=== PATIENT | male | born 1960 | race Caucasian/White ===

== ENCOUNTER 2018-12-07 08:54 | Day surgery (SDC) | payer MEDICARE, MEDICAID ==
[2018-12-07] VITALS (15 sets, daily range): BP systolic 137–165; BP diastolic 67–96
[~2018-12-07] VITALS: Ht 182.9 cm; Wt 117.2 kg
[2018-12-07 10:07] LABS: ALANINE AMINOTRANSFERASE 22 U/L (12-78); ALBUMIN 3.2 G/DL (3.4-5.0); ALBUMIN/GLOBULIN RATIO 0.7 (1.1-1.5); ALKALINE PHOSPHATASE 83 IU/L (46-116); ANION GAP 5 (8-16); ASPARTATE AMINO TRANSFERASE 20 U/L (10-37); BASOPHILS # (AUTO) 0.1 X10'3 (0-0.2); BILIRUBIN,TOTAL 0.3 MG/DL (0.1-1.0); BLOOD UREA NITROGEN 69 MG/DL (7-18); BUN/CREATININE RATIO 31.9 (5.4-32.0); CALCIUM 8.9 MG/DL (8.5-10.1); CHLORIDE 108 MMOL/L (99-107); CREATININE 2.16 MG/DL (0.60-1.10); EOSINOPHILS # (AUTO) 0.4 X10'3 (0-0.9); EOSINOPHILS % (AUTO) 5.2 % (0-6); GLUCOSE 146 MG/DL (70-104); HEMATOCRIT 29.5 % (42.0-52.0); HEMOGLOBIN 9.7 g/dl (14.0-17.9); LYMPHOCYTES # (AUTO) 1.6 X10'3 (1.1-4.8); LYMPHOCYTES % (AUTO) 22.2 % (21-51); MEAN CORPUSCULAR HEMOGLOBIN 28.4 PG (27.0-31.0); MEAN CORPUSCULAR VOLUME 85.9 FL (78-98); MEAN PLATELET VOLUME 8.2 FL (7.4-10.4); MONOCYTES # (AUTO) 0.6 X10'3 (0-0.9); MONOCYTES % (AUTO) 8.1 % (2-12); NEUTROPHILS # (AUTO) 4.6 X10'3 (1.8-7.7); NEUTROPHILS % (AUTO) 63.5 % (42-75); PLATELET COUNT 216 X10'3 (140-440); POTASSIUM 4.8 MMOL/L (3.5-5.1); RED BLOOD COUNT 3.43 X10'6 (4.70-6.10); RED CELL DISTRIBUTION WIDTH 13.9 % (11.5-14.5); SODIUM 143 MMOL/L (135-145); TOTAL CARBON DIOXIDE 29.6 MMOL/L (24-32); TOTAL PROTEIN 7.9 G/DL (6.4-8.2); WHITE BLOOD COUNT 7.3 X10'3 (4.5-11.0); eGFR 31 ML/MIN
[2018-12-07] MEDS ORDERED: famotidine/PF 10 mg/ml inj IV ONE (10:25)
[2018-12-07] MEDS ORDERED: vancomycin inj 1,500 MG in normal saline 300ml IV soln IV ONE (10:30)
[2018-12-07] MEDS ORDERED: cefazolin/dext.iso 2gm/100 ML IV ONE (10:30)
[2018-12-07] MEDS ORDERED: ringers solution, lacted 1,000 ML IV SCH (10:30)
[2018-12-07] MEDS ORDERED: famotidine 20mg tablet PO ONE (10:35)
[2018-12-07] MEDS ORDERED: INSU100C4 SQ (10:49)
[2018-12-07] MEDS ORDERED: ATOR40TA PO (10:49)
[2018-12-07] MEDS ORDERED: HYDR-4069 PO (10:49)
[2018-12-07] MEDS ORDERED: DOCU-20 PO (10:49)
[2018-12-07] MEDS ORDERED: AZIL1TAB3 PO (10:49)
[2018-12-07] MEDS ORDERED: SERT25TA PO (10:49)
[2018-12-07] MEDS ORDERED: INSU100I31 SQ (10:49)
[2018-12-07] MEDS ORDERED: HYDR-3965 PO (10:49)
[2018-12-07] MEDS ORDERED: TRAZ-251 PO (10:49)
[2018-12-07] MEDS ORDERED: AMLO10TA PO (10:49)
[2018-12-07] MEDS ORDERED: LIRA0.6P2 SUBCUT (10:49)
[2018-12-07] MEDS ORDERED: GABA-532 PO (10:49)
[2018-12-07] MEDS ORDERED: fentaNYL /PF 50mcg/ml 5ml ampule ONE (12:52)
[2018-12-07] MEDS ORDERED: midazolam 2 mg/2 ml injection ONE (12:52)
[2018-12-07] MEDS ORDERED: ROPIVAcaine 0.5% (5mg/ml) 30ml vial ONE ×3 (12:53→14:15)
[2018-12-07] MEDS ORDERED: LIDOcaine 1%/PF 5ML 10 MG/ML VIAL ONE (12:55)
[2018-12-07] MEDS ORDERED: propofol inj 20 ML IV ONE (12:55)
[2018-12-07] MEDS ORDERED: sevoflurane 250ml liquid IH ONE (13:04)
[2018-12-07] MEDS ORDERED: ondansetron/PF 4mg/2ml inj ONE (14:27)
--- NOTE | 2018-12-07 14:32 | NUR ---
Received from OR via [facility] , accompanied by Anesthesiologist MELA and report given by Anesthesiolgist. ERNIE BRACE TO LEFT KNEE. + DORSALIS PEDIS. NO DRAINAGE TO DRESSING TO LEFT KNEE. MEDICATED BY ANESTHESIA UPON ARRIVAL. 10L MASK ON WITH 100% SATURATIONS. VSS. DENIES PAIN FOLLOWING PAIN MEDS. Addendum: 12/07/18 at 1510 by Gerson Louie RN, RN Amended: Links added.
[2018-12-07] MEDS ORDERED: HYDROcodone/acetaminophen 10/325mg tab PO PRN (14:35)
[2018-12-07 15:01] LABS: ISTAT CREATININE 1.9 mg/dL (0.8-1.3); ISTAT HGB 8.8 g/dl (14.0-18.0); ISTAT IONIZED CALCIUM 1.24 mmol/L (1.03-1.32); ISTAT K 5.2 mmol/L (3.5-5.1); POC BUN/CREATININE RATIO 35.8 (5.4-32.0)
[2018-12-07] MEDS ORDERED: morphine 4 MG/ML inj SYRINge IV PRN ×2 (15:35)
[2018-12-07] MEDS ORDERED: morphine 4 MG/ML inj SYRINge ONE (15:37)
--- NOTE | 2018-12-07 16:42 | NUR ---
ALL DC CRITERIA HAS BEEN MET. IV TAKEN OUT WITHOUT COMPLICATIONS. ALL INSTRUCTIONS COVERED AND ALL QUESTIONS ANSWERED. DRESSINGS CDI. OUT VIA WHEELCHAIR TO PERSONAL VEHICLE WHERE PATIENT WAS SECURED IN AND DRIVEN HOME BY FAMILY. PRESENT TO HEAR ALL DC INSTRUCTIONS. OUT AND ASSISTED TO FRONT PASSENGER SEAT AND SECURED IN. Addendum: 12/07/18 at 1728 by Gerson Louie RN, RN Amended: Links added.
== END 2018-12-07 16:42 | disposition home or self-care (01) ==
LOC: PAS 08:54
PROVIDERS: ATTEND Orthopaedic Surgery
DX: S76.112A Strain of left quadriceps muscle, fascia and tendon, initial encounter (principal); M19.071 Primary osteoarthritis, right ankle and foot; W01.0XXA Fall on same level from slipping, tripping and stumbling without subsequent striking against object, initial encounter; Y93.89 Activity, other specified; Y92.89 Other specified places as the place of occurrence of the external cause; Y99.8 Other external cause status; Z79.899 Other long term (current) drug therapy
CPT/HCPCS: 27385; 36415; 80047; 82948; 85025; 93005; J2250; J2270; J2405; J2704; J3010; J3370; J7120; L1832; 80053; A4618; A6449; A7000; J2795; J3490

== ENCOUNTER 2023-02-19 11:46 | Emergency (ER) | payer BC, MEDICAID ==
[~2023-02-19] VITALS: Ht 182.9 cm; Wt 113.6 kg
[~2023-02-19 11:46] MED LIST: AMLO10TA PO; ATOR40TA PO; AZIL1TAB3 PO; DOCU-348 PO; GABA-532 PO; HYDR-3965 PO; HYDR-4069 PO; INSU100C4 SQ; INSU100I31 SQ; LIRA0.6P2 SUBCUT; SERT25TA PO; TRAZ-251 PO
[2023-02-19 12:06] LABS: BASOPHILS # (AUTO) 0.1 X10'3 (0-0.2); EOSINOPHILS # (AUTO) 0.3 X10'3 (0-0.9); EOSINOPHILS % (AUTO) 4.2 % (0-6); HEMATOCRIT 41.5 % (42.0-52.0); HEMOGLOBIN 13.6 g/dl (14.0-17.9); LYMPHOCYTES # (AUTO) 1.5 X10'3 (1.1-4.8); LYMPHOCYTES % (AUTO) 24.5 % (21-51); MEAN CORPUSCULAR HEMOGLOBIN 29.4 PG (27.0-31.0); MEAN CORPUSCULAR HGB CONC 32.8 g/dL (33.0-36.5); MEAN CORPUSCULAR VOLUME 89.7 FL (78-98); MEAN PLATELET VOLUME 8.1 FL (7.4-10.4); MONOCYTES # (AUTO) 0.4 X10'3 (0-0.9); NEUTROPHILS # (AUTO) 3.8 X10'3 (1.8-7.7); NEUTROPHILS % (AUTO) 63.3 % (42-75); PLATELET COUNT 183 X10'3 (140-440); RED BLOOD COUNT 4.63 X10'6 (4.70-6.10); RED CELL DISTRIBUTION WIDTH 14.5 % (11.5-14.5)
[2023-02-19 12:28] LABS: ALANINE AMINOTRANSFERASE 28 U/L (12-78); ALBUMIN 3.5 G/DL (3.4-5.0); ALBUMIN/GLOBULIN RATIO 0.9 (1.1-1.5); ALKALINE PHOSPHATASE 84 IU/L (46-116); ANION GAP 7 (8-16); ASPARTATE AMINO TRANSFERASE 20 U/L (10-37); BILIRUBIN,TOTAL 0.5 MG/DL (0.1-1.0); BLOOD UREA NITROGEN 59 MG/DL (7-18); BUN/CREATININE RATIO 23.9 (10.0-20.0); CALCIUM 8.9 MG/DL (8.5-10.1); CHLORIDE 104 MMOL/L (99-107); CREATININE 2.47 MG/DL (0.60-1.10); GLUCOSE 342 MG/DL (70-104); POTASSIUM 5.1 MMOL/L (3.5-5.1); SODIUM 139 MMOL/L (135-145); TOTAL CARBON DIOXIDE 28.4 MMOL/L (24-32); TOTAL PROTEIN 7.3 G/DL (6.4-8.2); eCRCL 33 ML/MIN; eGFR 26 ML/MIN
[2023-02-19 12:33] LABS: PRO BRAIN NATRIURETIC PEPTIDE 136 PG/ML (0-125)
[2023-02-19 15:14] VITALS: BP 120/63; PULSE 62; RESP 16; TEMP 98.1; O2SAT 96
== END 2023-02-19 15:15 | disposition home or self-care (01) ==
LOC: ER 11:46
DX: R07.89 Other chest pain (principal); E11.22 Type 2 diabetes mellitus with diabetic chronic kidney disease; I12.0 Hypertensive chronic kidney disease with stage 5 chronic kidney disease or end stage renal disease; N18.9 Chronic kidney disease, unspecified; Z79.899 Other long term (current) drug therapy; Z79.84 Long term (current) use of oral hypoglycemic drugs
CPT/HCPCS: 36415; 71045; 80053; 83880; 84484; 85025; 93005; 99285

== ENCOUNTER 2024-10-14 06:23 | Observation (INO) | payer BC, OTHER ==
[~2024-10-14] VITALS: Ht 182.9 cm; Wt 94.0 kg
[~2024-10-14 06:23] MED LIST changes: -HYDR-4069 PO; +HYDR25TA90 PO
--- NOTE | 2024-10-14 06:39 | Physician Documentation ---
History of Present Illness ~ Chief Complaint: Dizziness Stated Complaint: DIZZINESS Time Seen by MD: 06:37 OK to notify your PCP?: Yes Source: patient, RN/MD, RN notes reviewed, old records Mode of Arrival: POV Exam Limitations: no limitations HPI This pleasant diabetic states his last hemoglobin A1c a month ago was over nine. Has a history of renal insufficiency. He denies any tinnitus earache recent colds or infection. He went to bed doing perfectly fine with no symptoms and then woke up at 5:00 a.m. and has just tremendous difficulty with gait. No difficulty with speech or swallowing no weakness no numbness but when he stands up he just falls to the left he is unsure as to why he is so unsteady. He states he feels dizzy. He is not falling when he is sitting but when he ambulates he just has no balance. He will stand up and he just stumbles. Otherwise he has no symptoms no chest pain no shortness of breath fevers chills no paresthesias no numbness. Moving his head in different directions does not make his symptoms better or worse. Medication Reconciliation Allergies: Coded Allergies: No Known Allergies (Unverified , 12/07/18) Scheduled Amlodipine Besylate (Amlodipine Besylate), 1 TABLET PO DAILY, (Reported) Atorvastatin Calcium* (Lipitor*), 1 TAB PO DAILY, (Reported) Azilsartan Med/Chlorthalidone (Edarbyclor 40-12.5 mg Tablet), 1 TAB PO DAILY, (Reported) Gabapentin (Gabapentin), 1 CAP PO BID, (Reported) Hydralazine Hcl* (Apresoline*), 25 MG PO DAILY, (Reported) Insulin Aspart (Novolog), 15 UNIT SQ DAILY, (Reported) Insulin Glargine,Hum.rec.anlog (Basaglar Kwikpen U-100), 35 UNITS SQ BID, (Reported) Liraglutide (Victoza 3-Jey), 0.5 MG SUBCUT DAILY, (Reported) Sertraline Hcl* (Zoloft*), Unknown Dose PO DAILY, (Reported) Trazodone HCl (Trazodone HCl), 1 TAB PO HS, (Reported) Scheduled PRN Hydrocodone Bit/Acetaminophen 5/325 MG (Hamel 5/325 MG), 1 TAB PO Q6H PRN for pain, (Reported) Discontinued Medications Docusate Sodium (Docusate Sodium), 1 CAP PO DAILY, (Reported) Discontinued Reason: patient no longer taking Past Medical History Past Medical History: Chronic Kidney Disease, Diabetes Review of Systems All Other Systems at this time: Reviewed and Negative Physical Exam Vital Signs: RN Vital Signs have been reviewed: Yes, Temperature: 98.2, Source: Oral, Heart Rate: 68, Respiratory Rate: 16, BP: 164/68, Pulse Oximetry: 99, Weight: 94.000 Oxygen Flow Rate: 0 Physical Exam General: The patient is well developed, well nourished, nontoxic appearing and is in no acute distress. Skin: [place], warm and dry with no rashes. HEENT: Head was normocephalic and atraumatic. Eyes - pupils equal, round, reactive to light and accommodation. Extraocular movements were intact, positive nystagmus noted.. Conjunctivae were nonicteric. The mouth and oropharynx were clear with moist mucous membranes. There were no pharyngeal exudates or erythema. Neck: Supple and nontender. There was no jugular venous distention, lymphadenopathy, thyromegaly or masses. Chest: Clear to auscultation bilaterally without wheezes, rales or rhonchi. No accessory muscle use. No dullness to percussion. Heart: Rate regular and rhythmic. S1, S2. No murmurs. Palpation of the chest wall was normal. No rubs or thrills. Abdomen: Soft, nontender and nondistended. Positive bowel sounds. No guarding or rebound. No hepatosplenomegaly or palpable masses. Extremities: No cyanosis, clubbing or edema. The patient moves all extremities. Pulses were equal and symmetric. Neurologic: Cranial nerves II-XII were intact. Sensation was intact to light touch throughout. Motor strength was 5/5 in all four extremities. Deep tendon reflexes were intact in both upper and lower extremities. No pronator drift., gait unsteady listing to the last Psychologic: The patient was oriented to person, place and time. The patient demonstrated appropriate judgement and insight. Progress Results/Orders Reviewed/noted all lab results: Yes Results/Orders Orders - JOSÉ MIGUEL SALINAS MD Monitor (10/14/24 06:37) 2 Large Bore Ivs (10/14/24 06:37) Chest,Single View (10/14/24 06:37) Accucheck (10/14/24 06:37) Ct Stroke Alert (10/14/24 06:50) Electrocardiogram (10/14/24 06:37) [place] Prov.Neuro Consult (10/14/24 06:43) Echocardiogram (10/14/24 06:43) Normal Saline 1000ml (Sodium Chloride 10 (10/14/24 06:45) Cta Neck/Head (10/14/24 ) Page Hospitalist (10/14/24 07:28) Fill Out Med Reconciliation (10/14/24 07:28) Ua W/Microscopic, Cult If Ind (10/14/24 08:14) Completed Orders - JOSÉ MIGUEL SALINAS MD Cbc/Diff (10/14/24 06:37) Electrocardiogram (10/14/24 06:37) Chest,Single View (10/14/24 06:37) Ct Stroke Alert (10/14/24 06:50) BMP (10/14/24 06:37) PTT (10/14/24 06:37) Pt Inr (10/14/24 06:37) Iohexol 350mg/Ml 100ml (Omnipaque 350mg/ (10/14/24 06:42) Aspirin 81mg Chew Tablet (Aspirin 81mg C (10/14/24 07:15) Clopidogrel Tablet (Plavix Tablet) (10/14/24 07:30) Medications Received in ER Medications (Trade) Dose Ordered Sig/Judy Route PRN Reason Start Time Stop Time Status Last Admin Dose Admin Sodium Chloride 1,000 ml @ 150 mls/hr Q6H40M ONCE IV 10/14/24 06:45 10/14/24 13:24 10/14/24 06:59 150 MLS/HR (aspirin 81MG chew tablet) 324 mg ONCE ONCE PO 10/14/24 07:15 10/14/24 07:16 DC 10/14/24 07:19 324 MG (Plavix tablet) 300 mg ONCE ONCE PO 10/14/24 07:30 10/14/24 07:31 DC 10/14/24 07:57 300 MG Vital Signs 10/14/24 10/14/24 10/14/24 10/14/24 06:26 07:00 07:10 07:30 Temp 98.2 Pulse 68 70 68 69 Resp 16 16 16 16 B/P (MAP) 164/68 142/76 (98) 161/78 161/79 (106) Pulse Ox 99 99 98 99 O2 Flow Rate 0 0 0 Laboratory Tests Test 10/14/24 06:32 10/14/24 06:43 10/14/24 08:14 Glucometer 117 H White Blood Count 5.4 Red Blood Count 4.72 Hemoglobin 13.4 L Hematocrit 41.0 L Mean Corpuscular Volume 86.8 Mean Corpuscular Hemoglobin 28.4 Mean Corpuscular Hemoglobin Concent 32.7 L Red Cell Distribution Width 13.6 Platelet Count 174 Mean Platelet Volume 8.2 Neutrophils (%) (Auto) 51.1 Lymphocytes (%) (Auto) 32.6 Monocytes (%) (Auto) 9.0 Eosinophils (%) (Auto) 5.4 Basophils (%) (Auto) 1.9 H Neutrophils # (Auto) 2.7 Lymphocytes # (Auto) 1.7 Monocytes # (Auto) 0.5 Eosinophils # (Auto) 0.3 Basophils # (Auto) 0.1 CBC Comment Prothrombin Time 10.3 INR International Normalized Ratio 1.0 Activated Partial Thromboplast Time 27 Coagulation Comments Sodium Level 144 Potassium Level 4.2 Chloride Level 107 Carbon Dioxide Level 24.3 Anion Gap 13 Blood Urea Nitrogen 37 H Creatinine 1.92 H Estimated GFR/1.73 m2 35 BUN/Creatinine Ratio 19.3 Glucose Level 132 H Calcium Level 8.7 Albumin 3.4 Chemistry Comments Urine Specimen Description Cln catch midstream Urine Color Straw Urine Clarity Clear Urine pH 6.0 Urine Specific [place] 1.010 Urine Protein Negative Urine Glucose (UA) >=1000 H Urine Ketones Negative Urine Occult Blood Negative Urine Nitrite Negative Urine Bilirubin Negative Urine Urobilinogen 0.2 Urine Leukocyte Esterase Negative Volume Urine Centrifuged 10 ml Urine Comment Re-Evaluation Re-Evaluation : Re-Evaluation: Unchanged Progress Patient was seen and examined. Patient was given reassurance. A stroke alert was called. Neurology was involved. Patient after a negative CAT scan received aspirin and Plavix. Echocardiogram was ordered. No CT angiogram because of the chronic renal failure and a neurology did not feel this was an LV 0. Laboratory work was obtained. CBC was within normal limits some borderline anemia with a hemoglobin of 13 hematocrit of 41 and chemistry shows a GFR of 35 with a BUN of 37 and creatinine of 1.92. Urinalysis shows some glucosuria patient has a poorly controlled diabetic with a hemoglobin A1c above nine. IV lines were established urogynecology physician was established. Patient was then admitted to the hospitalist for further workup and care. CAT scan did not show any intracranial bleed or masses. Continuous urogynecology physician interpretation shows normal sinus rhythm heart rate 70s, no ectopy, normal, my interpretation. Pulse oximetry monitor interpretation shows normal oxygenation 99% room air, normal, my interpretation. EKG/XRAY/CT/US/VASC/MRI CT : CT: head With Contrast?: No Impression EXAM: CT CT STROKE ALERT INDICATION: Stroke Alert TECHNIQUE: CT of the head without intravenous contrast. Coronal and sagittal reformatted images are submitted. Radiation Dose : 1. Head: CT Dose: CTDI volume is 62.9 mGy. Dose-length product is 1182.1 mGy*cm The dose indicators for CT are the volume Computed Tomography (CT) Dose Index (CTDIvol) and the Dose Length Product (DLP), and are measured in units of mGy and mGy-cm, respectively. These indicators are not patient dose, but values generated from the CT scanner acquisition factors. The report includes radiation exposure data for exposures received during this examination. All CT scans at this medical facility are performed using dose modulation techniques as appropriate to a performed exam including the following: Automated exposure control was utilized; adjustment of the MA and/or KV according to patient size; and use of iterative reconstruction technique. COMPARISON: None FINDINGS: There is no evidence of acute intracranial hemorrhage, extra-axial collection, mass effect, midline shift, herniation or hydrocephalus. The ventricles, sulci and cisterns are age appropriate. The vaughan-white differentiation is intact. The visualized paranasal sinuses and mastoid air cells are clear. No depressed calvarial fracture. The surrounding soft tissues are unremarkable. IMPRESSION: 1. No evidence of acute intracranial abnormality. Medical Decision Making Additional info obtained from: old records Differential Dx:Considerations: Include: anemia, CVA, dehydration, dysrhythmia, electrolyte imbalance, hypoglycemia, hypotension, labyrinthitis, Meniere's disease, myasathenia gravis, myocardial infarction, pulmonary embolus, renal failure, TIA, VBI, vertigo central, vertigo peripheral, other Departure Admitted to Inpatient Unit: yes, to hospitalist Admission Level of Care: Neuro with Tele Impression: Primary Impression: Dizziness Additional Impressions: CKD (chronic kidney disease), stage III Qualified Codes: N18.32 - Chronic kidney disease, stage 3b CVA (cerebral vascular accident) Qualified Codes: I63.9 - Cerebral infarction, unspecified Condition: Guarded Referrals: NO PRIMARY CARE PROVIDER (PCP) Education Educated: Patient Educated regarding: diagnosis, need for follow up, other Critical Care Note Total Time (mins): 33 Critical Care Note The very real possibility of a deterioration of this patient's condition required the highest level of my preparedness for sudden, emergent intervention. I provided critical care services, which included medication orders, frequent reevaluations of the patient's condition and response to treatment, ordering and reviewing test results, and discussing the case with various consultants. Excludes time spent performing separately billable procedures. The critical care time associated with the care of the patient was. 33 minutes Signature Scribe Signature: No scribed Attestation: The note accurately reflects work and decisions made by me.José Miguel Salinas MD 10/14/24 06:39 JOSÉ MIGUEL SALINAS MD Oct 14, 2024 06:39
[2024-10-14] MEDS ORDERED: iohexol 350MG/ML 100ml bottle IV ONE (06:42)
--- NOTE | 2024-10-14 06:45 | ELECTROCARDIOGRAPH REPORT ---
[facility] Test Date: 2024-10-14 Test Time: 06:44:17 Pat Name: MARIALUISA PHILLIPS Department: [facility]-ER Patient ID: [id number] Room: ED 3 Gender: M [employer] Supervisor: : 1960 Requested By: IFEANYI SALINAS Order Number: [id number] Reading MD: Dr. Ifeanyi Salinas Measurements Intervals [place] Rate: 69 P: 44 MA: 189 QRS: -17 QRSD: 97 T: -20 QT: 410 QTc: 440 Interpretive Statements Sinus rhythm Abnormal R-wave progression, early transition LVH with secondary repolarization abnormality Anterior Q waves, possibly due to LVH Electronically Signed On 10-14-2024 11:30:[address] Ifeanyi Salinas Please click the below link to view image of tracing.
[2024-10-14] MEDS: normal saline 1000ml 1,000 ML IV ONE (06:59)
--- NOTE | 2024-10-14 07:07 | RADIOLOGY REPORT ---
EXAM: CT CT STROKE ALERT INDICATION: Stroke Alert TECHNIQUE: CT of the head without intravenous contrast. Coronal and sagittal reformatted images are s ubmitted. Radiation Dose : 1. Head: CT Dose: CTDI volume is 62.9 mGy. Dose-length product is 1182.1 mGy*cm The dose indicators for CT are the volume Computed Tomography (CT) Dose Index (CTDIvol) and the Dose Length Product (DLP), and are measured in units of mGy and mGy-cm, respectively. These indicators are not patient dose, but values generated from the CT scanner acquisition factors. The report includes radiation exposure data for exposures received during this examination. All CT scans at this medical facility are performed using dose modulation techniques as appropriate to a performed exam including the following: Automated exposure control was utilized; adjustment of the MA and/or KV according to patient size; and use of iterative reconstruction technique. COMPARISON: None FINDINGS: There is no evidence of acute intracranial hemorrhage, extra-axial collection, mass effect, midline s hift, herniation or hydrocephalus. The ventricles, sulci and cisterns are age appropriate. The vaughan-white differentiation is intact. The visualized paranasal sinuses and mastoid air cells are clear. No depressed calvarial fracture. The surrounding soft tissues are unremarkable. IMPRESSION: 1. No evidence of acute intracranial abnormality.
--- NOTE | 2024-10-14 07:13 | [facility] CONSULT REPORT ---
[facility] Procedure Note [facility] Procedure Note Consult [facility] Note # Demographics Consult Type: Acute Stroke Level 2 (4.5-24 hrs) Patient Location: Emergency Room First Name: Henry Last Name: Pilo Date of : 1960 Age: 64 Gender: Male Facility: [facility] Time of Initial Page (): 10/14/2024 06:42 Time of Return Call (): 10/14/2024 06:43 # HPI Chief Complaint: - dizziness Unsteady gait History: 64 yo M p/w unsteady gait and listing to the L side. He woke up at 5 AM and felt dizzy. He was unable to get out of bed due to unsteady gait. Last Known Normal: - I have collected independent history specific to time last normal or last k nown well. We have collaborated with the provider and at this time, we have the most current timeline with the information that is available. 10 pm last night # Scores Time of exam and NIHSS (): 10/14/2024 06:54 Level of Consciousness 1a: [0] = Alert; keenly responsive LOC Questions 1b: [0] = Answers both questions correctly LOC Commands 1c: [0] = Performs both tasks correctly Best Gaze 2: [0] = Normal Visual 3: [0] = No visual loss Facial Palsy 4: [0] = Normal symmetrical movements Motor Arm Left 5a: [0] = No drift Motor Arm Right 5b: [0] = No drift Motor Leg Left 6a: [0] = No drift Motor Leg Right 6b: [0] = No drift Limb Ataxia 7: [1] = Present in one limb Sensory 8: [0] = Normal Best Language 9: [0] = No aphasia Dysarthria 10: [0] = Normal Extinction and Inattention 11: [0] = No abnormality NIHSS Total: 1 # ROS Additional: - complete review of systems otherwise negative # PMH-FH-SH Past Medical History: - Diabetes - hypertension - chronic kidney disease # Data Head CT: - no bleed - preliminarily reviewed by me, please refer to radiology read for official reading # Assessment Impression: - Ischemic Stroke (Acute), likely posterior circulation stroke # Plan Thrombolytic/Intervention: NOT IV Thrombolysis or IA Intervention candidate Thrombolytic Exclusion: > 4.5 hours Intraarterial Exclusion: - clinical exam not consistent with presence of large vessel occlusion (LVO), can reconsider if LVO found on vascular imaging Target Blood Pressure: - SBP < 220 - DBP < 120 Labs: - hemoglobin A1c - lipid panel - troponin Imaging: (urgency: routine): - MRI Brain without contrast - MR Angiogram Head and neck without contrast Diagnostic Test: - echo without bubble study Therapy/Evaluation: - NPO until swallow evaluation - PT/OT evaluation - speech/swallow consultation Medication: - Plavix 300 mg PO x1 now, then 75 mg daily x 21 days + asa 81mg x 21 days, followed by monotherapy thereafter - start statin with goal of LDL < 70 DVT Prophylaxis: - SCD - chemical DVT prophylaxis Other: - If patient has any neurological deterioration please call me back immediately - telemetry monitoring - LDL < 70 - permissive hypertension for 24-48 hr, then gradually bring down to normotension - neurology referral as outpatient - I have discussed my recommendations with the referring provider # Logistics Attestation of consult completion: The patient is located at: [facility]. Facility staff participated in the visit. I performed this telemedicine visit from my offsite office utilizing interactive 2 way audio and visual telecommunication technology. Total time spent in telemedicine encounter: I spent 23 minutes reviewing clinical data and/or imaging, obtaining history, examining the patient, communicating with the onsite care team, and in preparation of this report. # Demographics First Name: Henry Last Name: Pilo Facility: [facility] Electronically signed at 10/14/2024 07:12 (Cord Time) by Cat Walters MD Neuro Consult Order placed for: Yes CAT WALTERS MD Oct 14, 2024 07:13
[2024-10-14] MEDS: aspirin 81mg tab.chew PO ONE (07:19)
--- NOTE | 2024-10-14 07:23 | RADIOLOGY REPORT ---
EXAM: XR Chest, 1 View CLINICAL INDICATION: Stroke Alert TECHNIQUE: Frontal view of the chest. COMPARISON: None FINDINGS: LUNGS AND PLEURAL SPACES: Unremarkable. No consolidation. No pneumothorax. HEART: Unremarkable. No cardiomegaly. MEDIASTINUM: Unremarkable. Normal mediastinal contour. BONES/JOINTS: Unremarkable. No acute fracture. OTHER FINDINGS: . IMPRESSION: No acute cardiopulmonary process.
[2024-10-14 07:24] LABS: BASOPHILS # (AUTO) 0.1 X10'3 (0-0.2); BASOPHILS % (AUTO) 1.9 % (0-1); EOSINOPHILS # (AUTO) 0.3 X10'3 (0-0.9); EOSINOPHILS % (AUTO) 5.4 % (0-6); HEMOGLOBIN 13.4 g/dl (14.0-17.9); LYMPHOCYTES # (AUTO) 1.7 X10'3 (1.1-4.8); LYMPHOCYTES % (AUTO) 32.6 % (21-51); MEAN CORPUSCULAR HEMOGLOBIN 28.4 PG (27.0-31.0); MEAN CORPUSCULAR HGB CONC 32.7 g/dL (33.0-36.5); MEAN CORPUSCULAR VOLUME 86.8 FL (78-98); MEAN PLATELET VOLUME 8.2 FL (7.4-10.4); MONOCYTES # (AUTO) 0.5 X10'3 (0-0.9); NEUTROPHILS # (AUTO) 2.7 X10'3 (1.8-7.7); NEUTROPHILS % (AUTO) 51.1 % (42-75); PLATELET COUNT 174 X10'3 (140-440); RED BLOOD COUNT 4.72 X10'6 (4.70-6.10); RED CELL DISTRIBUTION WIDTH 13.6 % (11.5-14.5); WHITE BLOOD COUNT 5.4 X10'3 (4.5-11.0)
[2024-10-14 07:25] LABS: ALBUMIN 3.4 G/DL (3.4-5.0); ANION GAP 13 (8-16); BLOOD UREA NITROGEN 37 MG/DL (7-18); BUN/CREATININE RATIO 19.3 (10.0-20.0); CALCIUM 8.7 MG/DL (8.5-10.1); CHLORIDE 107 MMOL/L (99-107); CREATININE 1.92 MG/DL (0.60-1.10); GLUCOSE 132 MG/DL (70-104); POTASSIUM 4.2 MMOL/L (3.5-5.1); SODIUM 144 MMOL/L (135-145); TOTAL CARBON DIOXIDE 24.3 MMOL/L (24-32); eCRCL 42 ML/MIN; eGFR 35 ML/MIN
[2024-10-14 07:28] LABS: APTT 27 SECONDS (22-32); PROTHROMBIN TIME 10.3 SECONDS (9.0-12.0)
[2024-10-14] MEDS: clopidogrel 300mg tablet PO ONE (07:57)
[2024-10-14 08:24] LABS: BILIRUBIN,URINE NEGATIVE (Neg); CLARITY,URINE CLEAR (Clear); COLOR,URINE STRAW (Yellow); GLUCOSE, URINE >=1000 mg/dl (Neg); KETONES,URINE NEGATIVE (Neg); LEUKOCYTE ESTERASE ,URINE NEGATIVE (Neg); NITRITES, URINE NEGATIVE (Neg); OCCULT BLOOD,URINE NEGATIVE (Neg); PROTEIN,URINE NEGATIVE (Neg); UROBILINOGEN,URINE 0.2 E.U/dL (0.2-1.0)
[2024-10-14 08:26] LABS: UA COLLECTION TYPE CLN CATCH MIDSTREAM
[2024-10-14 08:34] LABS: WBC,URINE 0-4 /HPF (0-4)
[2024-10-14 08:35] LABS: BACTERIA,URINE NONE SEEN /HPF (Neg); RBC,URINE 0-2 /HPF (0-2); SQUAMOUS EPITHELIAL CELL,UR NONE SEEN /LPF (FEW)
[2024-10-14] MEDS ORDERED: magnesium sulf-water 2g/50mL 50 ML IV PRN ×2 (08:40→11:55)
[2024-10-14] MEDS ORDERED: mag hydrox/Alum hydrox/simeth 30ml oral suspension PO PRN (08:40)
[2024-10-14] MEDS ORDERED: magnesium Cl slow-release 64mg tablet PO PRN ×2 (08:40→11:55)
[2024-10-14] MEDS ORDERED: potassium Cl 20 mEq SR tablet PO PRN ×4 (08:40→11:55)
[2024-10-14] MEDS ORDERED: ondansetron/PF 4mg/2ml inj IV PRN ×2 (08:40→11:55)
[2024-10-14] MEDS ORDERED: acetaminophen 325mg tablet PO PRN ×2 (08:40→11:55)
[2024-10-14] MEDS ORDERED: magnesium sulf-water 4G/100mL 100 ML IV PRN ×2 (08:40→11:55)
[2024-10-14] MEDS ORDERED: potassium Cl 40MEQ/1/2NS 520ml 520 ML IV PRN ×2 (08:40→11:55)
[2024-10-14] MEDS ORDERED: magnesium hydroxide 30ml (MOM) UD suspension PO PRN (08:40)
[2024-10-14 10:26] LABS: MAGNESIUM 2.2 MG/DL (1.5-2.4)
[2024-10-14] MEDS ORDERED: morphine 2 MG/ML inj. syringe IV PRN (11:55)
[2024-10-14] MEDS ORDERED: HYDROcodone/acetaminophen 5mg/325mg tablet PO PRN (11:55)
[2024-10-14 12:12] LABS: POTASSIUM 4.6 MMOL/L (3.5-5.1)
--- NOTE | 2024-10-14 12:42 | HISTORY AND PHYSICAL ---
History & Physical Providers to CC ~ History of Present Illness Reason for Admit\Complaint: Dizziness History of Present Illness 64 years old male with a history of diabetes mellitus, hypertension, hyperlipidemia, who reports being compliant with his medications, presented to the ER for evaluation of dizziness. Patient states he woke up this morning feeling dizzy and has unsteady gait. Patient reports going to bed last night in his usual state of health without any symptoms. Patient has no prior history of stroke or [place]. Denies having any nausea vomiting abdominal pain chest pain dysuria frequency urgency hematuria melena or bright red blood per rectum. Denies having any other focal neurological symptoms. Denies having any speech impairment. Allergies: Coded Allergies: No Known Allergies (Unverified , 12/07/18) Home Medications Home Medications Active Reported [place] 5/325 MG (Acetaminophen/Hydrocodone Bitart) 5 Mg/325 Mg Tablet 1 Tab PO Q6H PRN Trazodone HCl 50 Mg Tablet 1 Tab PO HS Amlodipine Besylate 10 Mg Tablet 1 Tablet PO DAILY Zoloft* (Sertraline HCl) Unknown Strength Tablet Unknown Dose PO DAILY Gabapentin 300 Mg Capsule 1 Cap PO BID Novolog (Insulin Aspart) 100 Unit/1 Ml Cartridge 15 Unit SQ DAILY Lipitor* (Atorvastatin Calcium) 40 Mg Tablet 1 Tab PO DAILY Victoza 3-Jey (Liraglutide) 0.6 Mg/0.1 Ml Pen.injctr 0.5 Mg SUBCUT DAILY Basaglar Kwikpen U-100 (Insulin Glargine,Hum.rec.anlog) 100 Unit/1 Ml Insuln.pen 35 Units SQ BID Edarbyclor 40-12.5 mg Tablet (Azilsartan Med/Chlorthalidone) 1 Each Tablet 1 Tab PO DAILY Apresoline* (Hydralazine HCl) 25 Mg Tablet 25 Mg PO DAILY Past Medical History Past Medical History Hypertension, IDDM, hyperlipidemia Past Surgical History Surgical History Comment None Family History Family History: Family history was reviewed; no changes noted. Past Social History Social History Comment Patient states he does not smoke drink or do any drugs Health Maintenance Health Maintenance Patient reports he is current on his immunizations. ROS ROS All other systems are reviewed and are negative except for as mentioned in HPI. Exam Vitals: Vital Signs Date Time Temp Pulse Resp B/P (MAP) Pulse Ox O2 Delivery O2 Flow Rate FiO2 10/14/24 10:16 67 16 165/80 (108) 97 6/6/25 09:30 0 10/14/24 06:26 98.2 General: Awake alert cooperative in no acute distress HEENT: Normocephalic atraumatic pupils round reactive to light and accommodation, extraocular movements intact, sclera anicteric, conjunctiva pinkish, moist oral mucosa, no rash or ulcers. Neck: Supple, no JVD, trachea midline, no lymphadenopathy. Chest: Clear to auscultation, no wheezes crackles or rhonchi. Cardiovascular: Regular rate rhythm, no murmur gallop or rub. Abdomen: Soft nontender, no organomegaly. Extremities: No cyanosis clubbing or edema. Central Nervous System: Grossly nonfocal. Moves all four extremities. Patient does not have any nasolabial fold flattening or any speech impairment. 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 Unsteady gait Musculoskeletal: No joint swelling or deformities Skin: Patient has no rash or ulcers Diagnostic Data Last Recorded Lab Results: 10/14/24 0643 10/14/24 0643 Diagnostic Data: Laboratory Tests Test 10/14/24 06:43 Prothrombin Time 10.3 SECONDS (9.0-12.0) INR International Normalized Ratio 1.0 INR Activated Partial Thromboplast Time 27 SECONDS (22-32) Coagulation Comments Additional Plan 64 years old male presented to the ER for evaluation of dizziness 1. Acute CVA, likely posterior circulation: Tele neurology has been consulted. Patient is on Lipitor 40 mg p.o. daily as outpatient which will be continued. We will check CTA head and neck, MRI of the brain and an echocardiogram. 2. Hypertension: Resume home medications of after permissive hypertension for 24 hours 3. IDDM: Carb controlled diet. Hyperglycemia protocol 4. GI prophylaxis: Pepcid 5. DVT prophylaxis: SCDs and early ambulation 6. Code status: Patient wishes to be a Full code 7. TWILA /CKD: Monitor daily creatinine Date of Service: Oct 14, 2024 Billing Provider: ADELE COHEN MD Common Visit Codes: 16978-[id number] INP/OBS CARE (HIGH) ADELE COHEN MD Oct 14, 2024 12:42
[2024-10-14] MEDS ORDERED: clopidogrel 75mg tablet PO SCH (13:05)
[2024-10-14] MEDS ORDERED: DEXTROSE 15 GM of carb/4 tabs (each vial/BOTTLE has 4 tablets) PO PRN ×2 (17:40)
[2024-10-14] MEDS ORDERED: dextrose 50%-water 50ml dispensing syringe IV PRN ×2 (17:40)
[2024-10-14] MEDS ORDERED: glucagon, human recombinant 1mg kit SUBCUT PRN (17:40)
[2024-10-14 18:03] LABS: HEMOGLOBIN A1C 9.5 % (4.5-6.2)
[2024-10-14] MEDS: INSULIN LISPRO 100 UNIT/ML INSULN.PEN MULTI-DOSE SQ SCH (19:27)
[2024-10-14 19:40] VITALS: BP 187/83; PULSE 79; RESP 16; TEMP 98.3; O2SAT 98
[2024-10-14] MEDS: docusate sod 100mg capsule PO SCH (19:58)
[2024-10-14] MEDS: K and/or MAG REPLACEMENT MC SCH (19:59)
[2024-10-14 20:00] VITALS: BP_SYST 123; BP_SYST 174; BP_SYST 187; BP_DIAS 77; BP_DIAS 79; BP_DIAS 83; PULSE 74; PULSE 75; PULSE 79; RESP 16; O2SAT 98
[2024-10-14] MEDS ORDERED: K and/or MAG REPLACEMENT MC SCH (20:00)
[2024-10-14 22:00] VITALS: BP 123/79; PULSE 74; RESP 16; TEMP 98.3; O2SAT 98
[2024-10-15] VITALS (8 sets, daily range): BP systolic 108–170; BP diastolic 66–89; PULSE 68–85; RESP 14–20; TEMP 97.9–98.3; O2SAT 96–98
[2024-10-15 06:26] LABS: BASOPHILS % (AUTO) 0.7 % (0-1); EOSINOPHILS # (AUTO) 0.3 X10'3 (0-0.9); EOSINOPHILS % (AUTO) 4.9 % (0-6); HEMATOCRIT 40.7 % (42.0-52.0); HEMOGLOBIN 13.5 g/dl (14.0-17.9); LYMPHOCYTES # (AUTO) 1.7 X10'3 (1.1-4.8); LYMPHOCYTES % (AUTO) 29.7 % (21-51); MEAN CORPUSCULAR HEMOGLOBIN 28.8 PG (27.0-31.0); MEAN CORPUSCULAR HGB CONC 33.3 g/dL (33.0-36.5); MEAN CORPUSCULAR VOLUME 86.4 FL (78-98); MEAN PLATELET VOLUME 8.3 FL (7.4-10.4); MONOCYTES # (AUTO) 0.5 X10'3 (0-0.9); MONOCYTES % (AUTO) 8.8 % (2-12); NEUTROPHILS # (AUTO) 3.3 X10'3 (1.8-7.7); NEUTROPHILS % (AUTO) 55.9 % (42-75); PLATELET COUNT 168 X10'3 (140-440); RED BLOOD COUNT 4.71 X10'6 (4.70-6.10); RED CELL DISTRIBUTION WIDTH 14.1 % (11.5-14.5); WHITE BLOOD COUNT 5.9 X10'3 (4.5-11.0)
[2024-10-15 06:53] LABS: ANION GAP 7 (8-16); BLOOD UREA NITROGEN 35 MG/DL (7-18); CALCIUM 8.8 MG/DL (8.5-10.1); CHLORIDE 110 MMOL/L (99-107); CREATININE 1.84 MG/DL (0.60-1.10); GLUCOSE 128 MG/DL (70-104); MAGNESIUM 2.1 MG/DL (1.5-2.4); POTASSIUM 4.9 MMOL/L (3.5-5.1); SODIUM 145 MMOL/L (135-145); TOTAL CARBON DIOXIDE 28.2 MMOL/L (24-32); eCRCL 44 ML/MIN; eGFR 37 ML/MIN
[2024-10-15] MEDS: aspirin 325mg tablet PO SCH (07:51)
[2024-10-15] MEDS: clopidogrel 75mg tablet PO SCH (07:51)
[2024-10-15] MEDS ORDERED: CLOP75TA34 PO (13:28)
--- NOTE | 2024-10-15 16:47 | PROGRESS NOTE ---
Daily Progress Note Providers to CC ~ Antibiotic Timeout Antibiotic Ordered?: No Subjective No new complaints, patient reports near resolution of his symptoms Objective Vital Signs Date Time Temp Pulse Resp B/P (MAP) Pulse Ox O2 Delivery O2 Flow Rate FiO2 10/15/24 10:00 98.0 74 16 155/87 (109) 98 Room Air 10/14/24 20:00 0.0 Result Diagram: 10/15/24 0522 10/15/24 0522 Awake alert oriented in NAD HEENT normcephalic atraumatic Neck supple, no JVD Chest Clear to auscultation , no wheezes crackles or rhonchi Heart RRR Abdomen soft , nontender no orgnomegaly Extremities No C/C/E Neuro exam Nonfocal Coagulation Studies Laboratory Tests Test 10/14/24 06:43 Prothrombin Time 10.3 SECONDS (9.0-12.0) INR International Normalized Ratio 1.0 INR Activated Partial Thromboplast Time 27 SECONDS (22-32) Coagulation Comments Problem\Assessment\Plan 64 years old male presented to the ER for evaluation of dizziness 1. 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 Patient is on Lipitor 40 mg p.o. daily as outpatient which will be continued. Await MRA Head and neck , MRI of the brain and an echocardiogram. 2. Hypertension: Resume home medications . 3. IDDM: Carb controlled diet. Hyperglycemia protocol 4. GI prophylaxis: Pepcid 5. DVT prophylaxis: SCDs and early ambulation 6. Code status: Patient wishes to be a Full code 7. TWILA /CKD: Monitor daily creatinine. Improving, likely due to diuretics , hold chlorthalidone. Date of Service: Oct 15, 2024 Billing Provider: ADELE COHEN MD Common Visit Codes: [id number] INP/OBS CARE(HIGH) ADELE COHEN MD Oct 15, 2024 16:47
[2024-10-15] MEDS ORDERED: HYDROcodone/acetaminophen 5mg/325mg tablet PO PRN (16:50)
[2024-10-15] MEDS ORDERED: morphine 4 MG/ML inj SYRINge IV PRN (20:51)
[2024-10-15] MEDS: gabapentin 300mg capsule PO SCH (21:06)
[2024-10-15] MEDS: traZODone 50mg tablet PO SCH (21:06)
[2024-10-15] MEDS: oxymetazoline 15 ML nasal spray NS SCH (21:06)
[2024-10-16 02:00] VITALS: BP 145/87; PULSE 65; RESP 15; TEMP 98.1; O2SAT 97
[2024-10-16 06:00] VITALS: BP 121/60; PULSE 68; RESP 18; TEMP 97.6; O2SAT 99
[2024-10-16 06:04] LABS: BASOPHILS # (AUTO) 0.1 X10'3 (0-0.2); BASOPHILS % (AUTO) 1.1 % (0-1); EOSINOPHILS # (AUTO) 0.3 X10'3 (0-0.9); EOSINOPHILS % (AUTO) 4.8 % (0-6); HEMATOCRIT 39.8 % (42.0-52.0); HEMOGLOBIN 13.2 g/dl (14.0-17.9); LYMPHOCYTES # (AUTO) 1.9 X10'3 (1.1-4.8); LYMPHOCYTES % (AUTO) 32.6 % (21-51); MEAN CORPUSCULAR HEMOGLOBIN 28.5 PG (27.0-31.0); MEAN CORPUSCULAR VOLUME 86.1 FL (78-98); MEAN PLATELET VOLUME 8.4 FL (7.4-10.4); MONOCYTES # (AUTO) 0.6 X10'3 (0-0.9); MONOCYTES % (AUTO) 9.6 % (2-12); NEUTROPHILS % (AUTO) 51.9 % (42-75); PLATELET COUNT 172 X10'3 (140-440); RED BLOOD COUNT 4.63 X10'6 (4.70-6.10); RED CELL DISTRIBUTION WIDTH 13.7 % (11.5-14.5); WHITE BLOOD COUNT 5.8 X10'3 (4.5-11.0)
[2024-10-16 06:17] LABS: ANION GAP 5 (8-16); BLOOD UREA NITROGEN 38 MG/DL (7-18); BUN/CREATININE RATIO 20.7 (10.0-20.0); CALCIUM 8.6 MG/DL (8.5-10.1); CHLORIDE 109 MMOL/L (99-107); CHOL/HDL RATIO 3.9 (0.00-4.99); CHOLESTEROL 185 MG/DL (0-200); CREATININE 1.84 MG/DL (0.60-1.10); GLUCOSE 239 MG/DL (70-104); HDL CHOLESTEROL 47 MG/DL (35-60); LDL CHOLESTEROL 103 MG/DL (50-100); MAGNESIUM 2.2 MG/DL (1.5-2.4); POTASSIUM 4.5 MMOL/L (3.5-5.1); SODIUM 143 MMOL/L (135-145); TOTAL CARBON DIOXIDE 28.9 MMOL/L (24-32); TRIGLYCERIDES 183 MG/DL (20-135); eCRCL 44 ML/MIN; eGFR 37 ML/MIN
[2024-10-16] MEDS: atorvastatin 20mg tablet PO SCH (07:32)
[2024-10-16] MEDS: amLODIPine 5mg tablet PO SCH (07:33)
[2024-10-16] MEDS: hydrALAZINE 25 MG tablet PO SCH (07:34)
[2024-10-16 08:00] VITALS: BP 120/60; PULSE 68
[2024-10-16 08:15] VITALS: RESP 16; O2SAT 99
--- NOTE | 2024-10-16 13:14 | RADIOLOGY REPORT ---
CLINICAL INDICATION: DIZZINESS COMPARISON: CT dated 10/14/2024. TECHNIQUE: Multisequence multiplanar MRI images of the brain were obtained without contrast. 3-D fahad e-of-flight MRA images were performed through the intracranial circulation without contrast. Additio nal 3-D reformatted images were obtained, stored, and reviewed. 3-D gxmn-oz-jfjwor MRA images of the neck were obtained. FINDINGS: MRI BRAIN: No acute infarct or hemorrhage. No mass or midline shift. No abnormal parenchymal or menin geal enhancement. Ventricles and sulci are within normal limits. Basal cisterns are patent. Cerebell um, brainstem, and midline structures are within normal limits. Paranasal sinuses are clear. Bilatera l lens prostheses incidentally noted. Orbits are otherwise grossly unremarkable. MRA BRAIN: The intracranial internal carotid arteries are normal in course and caliber. The middle a nd anterior cerebral arteries are unremarkable. The distal vertebral arteries, basilar artery, and po sterior cerebral arteries are normal in course and caliber. There is no evidence of large vessel occl usion, significant stenosis, vascular malformation, or aneurysm. MRA Neck: There is a separate origin of the left subclavian artery, left common carotid artery, and b rachiocephalic artery from the arch. The common carotid arteries and cervical internal carotid arter ies are normal in course and caliber, without evidence of significant stenosis or occlusion. Vertebra l artery origins are suboptimally evaluated due to artifact. Vertebral arteries appear otherwise shi nt throughout their cervical courses. IMPRESSION: 1. No acute intracranial abnormality. 2. MRA brain exam demonstrates no evidence of aneurysm, large vessel occlusion, significant stenosis, or vascular malformation. 3. MRA neck demonstrates patent carotid and vertebral arteries with no evidence of occlusion or signi ficant stenosis. FINAL REPORT
--- NOTE | 2024-10-16 16:53 | CARDIOLOGY REPORT ---
APPROVED REPORT EXAM: Comprehensive 2D, Doppler, and color-flow Echocardiogram. Patient Location: ED3 Blood Pressure: 161/78 mmHg Heart Rate: 68 bpm Rhythm: NSR Indications Abnormal EKG Diabetes Laundry Machine Operator is Ralf Wilder MD No previous echo 2D Dimensions LA Diam4.6 cm IVSd 1.2 (0.7-1.1cm) LVDd 5.2 cm PWd 1.2 (0.7-1.1cm) IVSs 1.5 (0.8-1.2cm) LVDs 3.1 (2.5-4.0cm) Aortic Root(2D) 3.3 cm PWs 1.4 (0.8-1.2cm) LVOT Diameter 2.05 (1.8-2.4cm) LVEF(%) 71.3 (>50%) Ao Asc Diam.3.42 cmIVC 19.93 mm FS (%) 40.8 % SV 92.4 ml CO 6.5 L/min M-Mode Dimensions MV EPSS 0.4 (<0.5cm) Aortic Valve AoV Peak José. 179.9 cm/s AoV VTI 43.8 cm AO Peak GR. 12.9 mmHg AO Mean GR. 7 mmHg LVOT VTI 38.52 cm LVOT Peak José. 157.8 cm/s CLAUDIA(VTI)/BSA 2.90 cm2/m2 CLAUDIA (VTI) 2.90 cm2 Mitral Valve MV E Velocity 73.3 cm/s MV Peak Gr. 4 mmHg MV DECEL TIME 184 ms MV A Velocity 83.4 cm/s MV PHT 72 ms E/A Ratio 0.9 MVA (PHT) 3.06 cm2 MV JArw784.6 cm/s TDI Medial E' P. V 6.25 cm/s E/Medial E' 11.7 Tricuspid Valve TR P. Velocity 239 cm/s RAP ESTIMATE 10 mmHg TR Peak Gr. 23 mmHg RVSP 33 mmHg Pulmonary Vein S1 Velocity 55.5 cm/s D2 Velocity 32.7 cm/s PVa Mfhxptfc13.3 cm/s PVa [id number] msec LEFT VENTRICLE LV is normal in size with mild concentric hypertrophy. Overall systolic function appears normal. LVEF is 70%. RIGHT VENTRICLE RV is normal size and function. RVSP is estimated at 33 mmHG. ATRIA Left atrium is moderately dilated. AORTIC VALVE Trileaflet AV appears sclerotic without stenosis. No insufficiency. MITRAL VALVE MV is thickened with mild annular thickening and no stenosis. Trace mitral regurgitation. TRICUSPID VALVE The tricuspid valve is normal in structure. Trace tricuspid regurgitation. PULMONIC VALVE The pulmonary valve is normal in structure. Trace pulmonic regurgitation. GREAT VESSELS The aortic root is normal in size. The ascending aorta is normal in size. The IVC is normal in size a nd collapses >50% with inspiration. PERICARDIUM There is no pericardial effusion. Other Information Study Quality: Adequate Conclusion LV is normal in size with mild concentric hypertrophy. Overall systolic function appears normal. LVEF is 70%. RV is normal size and function. RVSP is estimated at 33 mmHG. Left atrium is moderately dilated. Trileaflet AV appears sclerotic without stenosis. No insufficiency. MV is thickened with mild annular thickening and no stenosis. Trace mitral regurgitation. The tricuspid valve is normal in structure. Trace tricuspid regurgitation. The pulmonary valve is normal in structure. Trace pulmonic regurgitation. There is no pericardial effusion.
--- NOTE | 2024-10-17 22:23 | DISCHARGE SUMMARY ---
Discharge Summary Providers to ~ Discharge Summary Admission Diagnosis: CVA Hospital Course DATE OF ADMISSION: 10/14/2024 DATE OF DISCHARGE:10/16/2024 Discharge Diagnosis\Comment: TIA Operations\Procedures: CT Brain MRI Brain MRA Head/Neck Echocardiogram Consultants: Teleneurology Complications: None Condition on DC: Stable New Medications: Clopidogrel Bisulfate (Clopidogrel) 75 Mg Tablet 75 MG PO DAILY for 30 Days, #30 TAB Do not stop medication unless instructed by prescriber. Continued Medications: Amlodipine Besylate (Amlodipine Besylate) 10 Mg Tablet 1 TABLET PO DAILY, TABLET 5 Refills Atorvastatin Calcium* (Lipitor*) 40 Mg Tablet 1 TAB PO DAILY, TAB Azilsartan Med/Chlorthalidone (Edarbyclor 40-12.5 mg Tablet) 1 Each Tablet 1 TAB PO DAILY Gabapentin (Gabapentin) 300 Mg Capsule 1 CAP PO BID, CAP Hydralazine Hcl* (Apresoline*) 25 Mg Tablet 25 MG PO DAILY, TAB Hydrocodone Bit/Acetaminophen 5/325 MG ([place] 5/325 MG) 5 Mg/325 Mg Tablet 1 TAB PO Q6H PRN for pain, TAB Insulin Aspart (Novolog) 100 Unit/1 Ml Cartridge 15 UNIT SQ DAILY, UNIT Insulin Glargine,Hum.rec.anlog (Basaglar Kwikpen U-100) 100 Unit/1 Ml Insuln.pen 35 UNITS SQ BID Liraglutide (Victoza 3-Jey) 0.6 Mg/0.1 Ml Pen.injctr 0.5 MG SUBCUT DAILY, ML 3 Refills Sertraline Hcl* (Zoloft*) Unknown Strength Tablet Unknown Dose PO DAILY, TAB Trazodone HCl (Trazodone HCl) 50 Mg Tablet 1 TAB PO HS, TAB Discharge Summary: 64 years old male presented to the ER for evaluation of dizziness Please refer to H $ P for further details. Hospital course: Patient was admitted on the monitored floor and his hospital c ourse was as follows. 1. TIA : likely posterior circulation: Patient noted to have left 6 th nerve palsy and dysconjugate eye movements. Tele neurology consulted. Patient has been on Lipitor 40 mg p.o. daily as outpatient which was continued. MRA Head and neck ,and MRI of the brain and an echocardiogram done which did not show any abnormality.EF nl at 70 % . Patient had a complete resolution of his symptoms. 2. Hypertension: Resumed home medications amlodipine and hydralazine. 3. IDDM: Placed on Carb controlled diet and hyperglycemia protocol 4. GI prophylaxis: Patient was treated with Pepcid. 5. DVT prophylaxis: SCDs and encouraged early ambulation 6. Code status: Patient was kept as a Full code 7. TWILA /CKD: Monitored daily creatinine. Improved, likely due to chlorthalidone which was withheld. Patient is advised to follow up with his PCP and discuss his BP medications regimen. Discharge day exam : I examined the patient on the discharge. Awake alert oriented in NAD HEENT normcephalic atraumatic Neck supple, no JVD Chest Clear to auscultation , no wheezes crackles or rhonchi Heart RRR, No murmur gallop or rub Abdomen soft , nontender no orgnomegaly Extremities No C/C/E Neuro exam Nonfocal Disposition Home *Problems/Diagnosis: (1) TIA (transient ischemic attack) Total Time Spent on D/C: > 30 Minutes Date of Service: Oct 16, 2024 Billing Provider: ADELE COHEN MD Common Visit Codes: 70781-BBQ/OBS DISCH DAY >30min ADELE COHEN MD Oct 17, 2024 22:06
== END 2024-10-16 15:43 | disposition home or self-care (01) ==
LOC: ER 06:24 → ED HOLD 08:39 → ORTHO 4S 19:45
PROVIDERS: ADMIT Internal Medicine; ATTEND Internal Medicine
DX: G45.9 Transient cerebral ischemic attack, unspecified (principal); I63.9 Cerebral infarction, unspecified; I12.9 Hypertensive chronic kidney disease with stage 1 through stage 4 chronic kidney disease, or unspecified chronic kidney disease; E11.22 Type 2 diabetes mellitus with diabetic chronic kidney disease; N18.32 Chronic kidney disease, stage 3b; E78.5 Hyperlipidemia, unspecified; N17.9 Acute kidney failure, unspecified; Z79.4 Long term (current) use of insulin; Z79.899 Other long term (current) drug therapy
CPT/HCPCS: 36415; 70450; 70544; 70547; 70551; 71045; 80048; 80061; 81001; 82948; 83036; 83735; 84132; 85025; 85610; 85730; 87081; 93005; 93306; 96360; 97116; 97162; 97530; 99291; G0378; J1815; J7030; Q9967